=== PATIENT | male | born 1995 | race Caucasian/White ===

== ENCOUNTER 2016-05-11 10:11 | Emergency (ER) | payer SELFPAY ==
[2016-05-11 10:30] VITALS: TEMP 98.1; O2SAT 99
--- NOTE | 2016-05-11 10:33 | ED.PDOC ---
History of Present Illness - General Chief Complaint: ENT Problem Stated Complaint: sorethroat, cough Time Seen by Provider: 05/11/16 10:20 Source: patient, RN notes reviewed, Vital Signs reviewed Exam Limitations: no limitations - History of Present Illness Initial Comments: Patient reports he started feeling bad about 5 days ago. Took most of last week off work due to it. Started to feel better on Thursday and then worsened again on Thursday. No fever but + chills, nasal congestion, sore throat and cough. He did not get a flu shot this year. Timing/Duration: other - 5 days Severity: moderate Improving Factors: nothing Worsening Factors: nothing Associated Symptoms: cough, fever/chills, headaches - unchanged from baseline, malaise Allergies/Adverse Reactions: Allergies NO KNOWN ALLERGY Allergy (Verified 05/11/16 10:25) Home Medications: Ambulatory Orders Azithromycin [Zithromax Z-Juan Jose] 1 ea PO DAILY #1 pack 05/11/16 Review of Systems - Review of Systems Constitutional: States: chills, malaise. Denies: fever, weakness EENTM: States: nose congestion, throat pain. Denies: ear pain, mouth pain Respiratory: States: cough. Denies: orthopnea, short of breath, stridor, wheezing Cardiology: States: no symptoms reported Gastrointestinal/Abdominal: States: no symptoms reported Genitourinary: States: no symptoms reported Musculoskeletal: States: no symptoms reported Skin: States: no symptoms reported Neurological: States: headache Endocrine: States: no symptoms reported Hematologic/Lymphatic: States: no symptoms reported Past Medical History (General) - Patient Medical History Hx Seizures: No Hx Stroke: No Hx Dementia: No Hx Asthma: No Hx of COPD: No Hx Cardiac Disorders: No Hx Congestive Heart Failure: No Hx Pacemaker: No Hx Hypertension: No Hx Thyroid Disease: Yes Hx Diabetes: No Hx Gastroesophageal Reflux: No Hx Renal Disease: No Hx Cancer: No Hx of HIV: No Hx Hepatitis C: No Hx MRSA: No Surgical History: no surgical history - Vaccination History Hx Tetanus, Diphtheria Vaccination: Yes Hx Influenza Vaccination: No Hx Pneumococcal Vaccination: No - Social History Hx Tobacco Use: No Hx Chewing Tobacco Use: No Hx Alcohol Use: No Hx Substance Use: No Hx Substance Use Treatment: No Hx Depression: Yes Hx Physical Abuse: No Hx Emotional Abuse: No Hx Suspected Abuse: No - Activities of Daily Living Hospice Agency (if applicable):: None - Female History Patient is a Female of Child Bearing Age (10 -59 yrs old): No Patient : No Family Medical History - Family History Mother Family History: Unknown Living Status: Physical Exam - Physical Exam General Appearance: Alert, Comfortable, No apparent distress, Well Developed, Well Groomed, Well Hydrated, Well Nourished Eye Exam: bilateral normal Ears, Nose, Throat: hearing grossly normal, normal ENT inspection, normal pharynx Neck: non-tender, full range of motion, supple, normal inspection Respiratory: chest non-tender, lungs clear, normal breath sounds, no respiratory distress, no accessory muscle use Cardiovascular/Chest: regular rate, rhythm, no edema, no gallop, no JVD, no murmur Extremity: normal range of motion, non-tender, normal inspection Neurologic: no motor/sensory deficits, alert, normal mood/affect, oriented x 3 Skin Exam: normal color, warm/dry Lymphatic: no adenopathy Progress - Results/Orders Results/Orders: Laboratory Tests 05/11/16 10:31 Group A Strep DNA Negative Influenza A & B are Negative Departure - Departure Clinical Impression: Upper respiratory infection, acute Time of Disposition: 11:04 Disposition: Discharge to Home or Self Care Condition: Good Departure Forms: ED Discharge - Pt. Copy, Patient Portal Self Enrollment Instructions: DI for Viral Upper Respiratory Infection -- Adult Diet: resume usual diet Activity: increase activity as tolerated Prescriptions: Azithromycin [Zithromax Z-Juan Jose] 1 ea PO DAILY #1 pack Home Medications: Ambulatory Orders Azithromycin [Zithromax Z-Juan Jose] 1 ea PO DAILY #1 pack 05/11/16 Additional Instructions: OTC cold/sinus medications
[2016-05-11 11:11] VITALS: BP 142/91
== END 2016-05-11 11:10 | disposition home or self-care (01) ==
LOC: ER 10:11
DX: J06.9 Acute upper respiratory infection, unspecified (principal); E07.9 Disorder of thyroid, unspecified

== ENCOUNTER 2017-05-28 17:41 | Emergency (ER) | payer SELFPAY ==
[2017-05-28] MEDS ORDERED: ACETAMINOPHEN 500 MG TAB PO ONE (19:07)
[2017-05-28] MEDS ORDERED: PROMETHAZINE HCL INJ 12.5 MG in SODIUM CHLORIDE 0.9% 50ML 50 ML IVPB ONE (19:07)
[2017-05-28] MEDS ORDERED: SODIUM CHLORIDE 0.9% 1000ML 1,000 ML IVS ONE (19:07)
[2017-05-28] MEDS ORDERED: SODIUM CHLORIDE 0.9% 50ML 50 ML ONE (19:10)
[2017-05-28] MEDS ORDERED: PROMETHAZINE HCL INJ 25 MG/ML VIAL ONE (19:10)
--- NOTE | 2017-05-28 20:28 | ED.PDOC ---
History of Present Illness - General Chief Complaint: GI Problem Stated Complaint: Nausea, vomiting, diarrhea Time Seen by Provider: 05/28/17 20:11 Source: patient Exam Limitations: no limitations Additional Information: ONSET TODAY. DIARRHEA WATERY NO BLOOD, IS UNSURE ABOUT COFFEE GROUND EMESIS. ONSET OF FEVER [employer]. - History of Present Illness Initial Comments: MOD IN INTENSITY Severity: moderate Improving Factors: nothing Worsening Factors: nothing Allergies/Adverse Reactions: Allergies NO KNOWN ALLERGY Allergy (Verified 05/11/16 10:25) Home Medications: Ambulatory Orders Azithromycin [Zithromax Z-Juan Jose] 1 ea PO DAILY #1 pack 05/11/16 Ondansetron [Zofran Odt] 4 mg PO TID PRN #6 tab 05/28/17 Review of Systems - Review of Systems Constitutional: States: diaphoresis, fever. Denies: chills EENTM: States: no symptoms reported Respiratory: States: cough. Denies: short of breath Cardiology: Denies: chest pain, palpitations, syncope Gastrointestinal/Abdominal: States: abdominal pain, diarrhea, nausea, vomiting Genitourinary: States: no symptoms reported Musculoskeletal: States: no symptoms reported Skin: States: no symptoms reported Neurological: States: no symptoms reported Endocrine: States: no symptoms reported Past Medical History (General) - Patient Medical History Hx Seizures: No Hx Stroke: No Hx Dementia: No Hx Asthma: No Hx of COPD: No Hx Cardiac Disorders: No Hx Congestive Heart Failure: No Hx Pacemaker: No Hx Hypertension: No Hx Thyroid Disease: Yes Hx Diabetes: No Hx Gastroesophageal Reflux: No Hx Renal Disease: No Hx Cancer: No Hx of HIV: No Hx Hepatitis C: No Hx MRSA: No Surgical History: no surgical history - Vaccination History Hx Tetanus, Diphtheria Vaccination: Yes Hx Influenza Vaccination: No Hx Pneumococcal Vaccination: No Immunizations Up to Date: Yes - Social History Hx Tobacco Use: No Hx Chewing Tobacco Use: No Hx Alcohol Use: No Hx Substance Use: No Hx Substance Use Treatment: No Hx Depression: Yes Hx Physical Abuse: No Hx Emotional Abuse: No Hx Suspected Abuse: No - Female History Patient : No Family Medical History - Family History Mother Family History: Unknown Living Status: Physical Exam - Physical Exam General Appearance: Alert, No apparent distress Eye Exam: bilateral normal Ears, Nose, Throat: hearing grossly normal, normal ENT inspection Neck: non-tender, full range of motion, supple Respiratory: lungs clear, normal breath sounds Cardiovascular/Chest: regular rate, rhythm, no edema, no murmur Gastrointestinal/Abdominal: normal bowel sounds, soft, no organomegaly, other - MILD TTP DIFFUSELY Back Exam: normal inspection, no CVA tenderness, no vertebral tenderness Extremity: normal range of motion, non-tender, no pedal edema Neurologic: alert, normal mood/affect Skin Exam: diaphoresis, other - HOT Lymphatic: no adenopathy Progress - Progress Progress: 05/28/17 21:36 NO FURTHER VOMITING, UNABLE TO PROVIDE STOOL SAMPLE. Departure - Departure Clinical Impression: Gastroenteritis and colitis, viral, Dehydration Time of Disposition: 21:43 Disposition: Discharge to Home or Self Care Condition: Good Departure Forms: ED Discharge - Pt. Copy, Patient Portal Self Enrollment Instructions: DI for Viral Gastroenteritis -- Adult Prescriptions: Ondansetron [Zofran Odt] 4 mg PO TID PRN #6 tab PRN Reason: Nausea/Vomiting Home Medications: Ambulatory Orders Azithromycin [Zithromax Z-Juan Jose] 1 ea PO DAILY #1 pack 05/11/16 Ondansetron [Zofran Odt] 4 mg PO TID PRN #6 tab 05/28/17
[2017-05-28 22:01] VITALS: BP 143/79; O2SAT 99
[2017-05-28 22:03] VITALS: TEMP 99.9
== END 2017-05-28 22:02 | disposition home or self-care (01) ==
LOC: ER 17:41
DX: A08.4 Viral intestinal infection, unspecified (principal); E86.0 Dehydration; E07.9 Disorder of thyroid, unspecified

== ENCOUNTER 2017-06-04 06:25 | Emergency (ER) | payer SELFPAY ==
--- NOTE | 2017-06-04 06:32 | ED.PDOC ---
History of Present Illness - General Information Source: patient, Vital Signs reviewed Additional Information: 22 YEAR OLD PRESENTS WITH ACUTE ONSET OF PAIN IN THE RIGHT LOWER QUADRANT EARLY THIS MORNING HE HAS ASSOCIATED NAUSEA NO VOMITING NO DIARRHEA HAS SOME RADIATION TOWARD THE CENTRAL ABDOMEN HAS URGE TO VOID NO FLANK PAIN HIS SISTER HAS HISTORY OF RENAL CALCULUS - History of Present Illness Abdominal Pain Onset Location: RLQ, flank Pain Radiation: RLQ Quality: moderate, stabbing Timing/Duration: 1/2 hour Improving Factors: nothing Worsening Factors: nothing Associated Symptoms: nausea/vomiting <Jose Cordova - Last Filed: 06/04/17 06:30> <William Avalos - Last Filed: 06/04/17 08:35> - General Time Seen by Provider: 06/04/17 06:30 Review of Systems - Review of Systems Constitutional: States: no symptoms reported EENTM: States: no symptoms reported Respiratory: States: no symptoms reported Cardiology: States: no symptoms reported Gastrointestinal/Abdominal: States: see HPI Genitourinary: States: no symptoms reported Musculoskeletal: States: no symptoms reported Skin: States: no symptoms reported Neurological: States: no symptoms reported Endocrine: States: no symptoms reported Hematologic/Lymphatic: States: no symptoms reported <Jose Cordova Filed: 06/04/17 06:30> Past Medical History (General) - Patient Medical History Hx Seizures: No Hx Stroke: No Hx Dementia: No Hx Asthma: No Hx of COPD: No Hx Cardiac Disorders: No Hx Congestive Heart Failure: No Hx Pacemaker: No Hx Hypertension: No Hx Thyroid Disease: Yes Hx Diabetes: No Hx Gastroesophageal Reflux: No Hx Renal Disease: No Hx Cancer: No Hx of HIV: No Hx Hepatitis C: No Hx MRSA: No - Vaccination History Hx Tetanus, Diphtheria Vaccination: Yes Hx Influenza Vaccination: No Hx Pneumococcal Vaccination: No - Social History Hx Tobacco Use: No Hx Chewing Tobacco Use: No Hx Alcohol Use: No Hx Substance Use: No Hx Substance Use Treatment: No Hx Depression: Yes Hx Physical Abuse: No Hx Emotional Abuse: No Hx Suspected Abuse: No - Female History Patient : No <Jose Cordova Filed: 06/04/17 06:30> Family Medical History - Family History Mother Family History: Unknown Living Status: <Jose Cordova Filed: 06/04/17 06:30> Physical Exam - Physical Exam General Appearance: Obvious distress Eyes, Ears, Nose, Throat Exam: PERRL/EOMI, normal ENT inspection, TMs normal, pharynx normal Neck: non-tender, full range of motion, supple Respiratory: chest non-tender, lungs clear, normal breath sounds Cardiovascular/Chest: normal peripheral pulses, regular rate, rhythm, no edema, no gallop, no JVD, no murmur Gastrointestinal/Abdominal: normal bowel sounds, tenderness - RLQ TENDER WITH GAURDING <Jose Cordova - Last Filed: 06/04/17 06:30> Progress - Results/Orders Results/Orders: 22 YEAR OLD HEALTHY MALE WITH ACUTE RLQ PAIN WILL GET CBC CMP UA CT ABDOMEN WITH IV CONTRAST POSSIBLE ACUTE APPENDICITIS <Jose Cordova - Last Filed: 06/04/17 06:30> - Progress Progress: 06/04/17 08:31 the patient is a 22-year-old male presenting to the emergency room with right-sided abdominal pain. Blood work is equivocal. Blood culture has been performed. The patient is being dosed with a dose of Rocephin, metronidazole and ciprofloxacin here today. He is going to be placed on ciprofloxacin and metronidazole for the next [address] scan indicates either early appendicitis or early mesenteric adenitis. 2 Aleve twice daily with food can be used to help with discomfort. If the patient is worsening after 24 or 48 hours then reevaluation may be warranted. At this time no surgical evaluation appears warranted. I would like him to follow up with his primary care doctor tomorrow evening before the weekend for reevaluation. ER warnings were given for any worsening. He does need to take antibiotics with some food prevent stomach upset and he needs to avoid alcohol intake. - Results/Orders Results/Orders: 06/04/17 06:38 Hold Metformin x 48Hrs [id number] 06/04/17 08:07 cefTRIAXone SODIUM [Rocephin] 1 gm Sodium Chl 0.9% 50Ml Min-Bag+ [NS 50ml MINI -BAG+] 50 ml IVPB ONCE metroNIDAZOLE IV PREMIX 500MG [Flagyl IV Premix 500 MG/100 ML] 500 mg Premix Bag 1 bag IVPB ONCE 06/04/17 08:11 BLOOD CULTURE Stat Laboratory Results - last 24 hr 06/04/17 06/04/17 06/04/17 06:54 06:54 07:25 WBC 10.0 RBC 4.91 Hgb 14.9 Hct 42.5 MCV 86.4 MCH 30.4 MCHC 35.1 RDW 13.1 Plt Count 296 MPV 7.8 Absolute Neuts (auto) 4.80 Absolute Lymphs (auto) 4.10 H Absolute Monos (auto) 0.90 H Absolute Eos (auto) 0.10 Absolute Basos (auto) 0.10 Neutrophils % 48.0 Lymphocytes % 41.3 Monocytes % 8.7 Eosinophils % 1.0 Basophils % 1.0 Sodium 138 Potassium 3.3 L Chloride 103 Carbon Dioxide 25 Anion Gap 13.3 BUN 8 Creatinine 0.81 BUN/Creatinine Ratio 9.9 L Random Glucose 107 H Serum Osmolality 274.5 L Calcium 8.9 Total Bilirubin 0.6 AST 36 ALT 61 H Alkaline Phosphatase 73 Serum Total Protein 8.5 H Albumin 4.0 Globulin 4.5 H Albumin/Globulin Ratio 0.9 L Urine Color Yellow Urine Appearance Clear Urine pH 6.0 Ur Specific [place] 1.025 Urine Protein Negative Urine Glucose (UA) Negative Urine Ketones Negative Urine Blood Negative Urine Nitrite Negative Urine Bilirubin Negative Urine Urobilinogen 0.2 Ur Leukocyte Esterase Negative Urine RBC 0 Urine WBC 3-5 H Ur Epithelial Cells 3-5 Urine Bacteria Rare Urine Mucus Moderate scan of the abdomen and pelvis show possible mesenteric adenitis versus possible early appendicitis. No obstruction. No free air. No abscess. No evidence of any kidney stone. <William Avalos - Last Filed: 06/04/17 08:35> Departure <Jose Cordova - Last Filed: 06/04/17 06:30> - Departure Diet: regular diet Activity: increase activity as tolerated <William Avalos - Last Filed: 06/04/17 08:35> - Departure Clinical Impression: Abdominal pain Qualifiers: Abdominal location: right lower quadrant Qualified Code(s): R10.31 - Right lower quadrant pain Disposition: Discharge to Home or Self Care Condition: Fair Instructions: DI for Abdominal Pain-Adult Prescriptions: Ciprofloxacin [Cipro] 500 mg PO BID #20 tab Metronidazole 500 mg PO TID #30 tab Home Medications: Ambulatory Orders Azithromycin [Zithromax Z-Juan Jose] 1 ea PO DAILY #1 pack 05/11/16 Ondansetron [Zofran Odt] 4 mg PO TID PRN #6 tab 05/28/17 Ciprofloxacin [Cipro] 500 mg PO BID #20 tab 06/04/17 Metronidazole 500 mg PO TID #30 tab 06/04/17 Additional Instructions: the patient is a 22-year-old male presenting to the emergency room with right-sided abdominal pain. Blood work is equivocal. Blood culture has been performed. The patient is being dosed with a dose of Rocephin, metronidazole and ciprofloxacin here today. He is going to be placed on ciprofloxacin and metronidazole for the next [address] scan indicates either early appendicitis or early mesenteric adenitis. 2 Aleve twice daily with food can be used to help with discomfort. If the patient is worsening after 24 or 48 hours then reevaluation may be warranted. At this time no surgical evaluation appears warranted. I would like him to follow up with his primary care doctor tomorrow evening before the weekend for reevaluation. ER warnings were given for any worsening. He does need to take antibiotics with some food prevent stomach upset and he needs to avoid alcohol intake. for the next 48 hours a full liquid diet is recommended.
[2017-06-04 06:49] VITALS: TEMP 97.6
[2017-06-04] MEDS: SODIUM CHLORIDE 0.9% 1000ML 1,000 ML IVS ONE (06:58)
[2017-06-04] MEDS: KETOROLAC TROMETHAMINE INJ 30 MG/ML VIAL IV ONE (06:59)
--- NOTE | 2017-06-04 08:01 | CT ---
EXAM DESCRIPTION: CT ABDOMEN AND PELVIS WITH CONTRAST CLINICAL HISTORY: R/O APPY COMPARISON: None Available. TECHNIQUE: Venous and delayed imaging with IV nonionic contrast was performed without oral contrast enhancement with MPR reformatted images. This exam was performed according to our departmental dose-optimization program, which includes automated exposure control, adjustment of the mA and/or kV according to patient size and/or use of iterative reconstruction technique. FINDINGS: The lung bases are clear of infiltrate. In the right lower quadrant on both venous and delayed imaging as well as MPR reformatted images curvilinear minimally hyperemic appendix between six and 7 mm in size is present. An associated appendicolith or cecal or pericolic inflammation is not apparent. The appendix is borderline enlarged and possibility of very early or very minimal uncomplicated acute appendicitis cannot be completely excluded. Secondary inflammatory changes around the cecum and appendix and small bowel are not apparent. Surgical consultation and/or correlation with the laboratory values recommended. Numerous normal to upper normal mesenteric lymph nodes consistent with mesenteric adenitis with some nodes borderline enlarged at approximately 1.5 cm is apparent. The liver is upper normal in size with mild diffuse fatty infiltration of the liver with mild splenomegaly. Small and large bowel caliber is normal. The kidneys normally enhance without cyst or mass or obstruction in normal function on delayed imaging is apparent. The adrenal glands and pancreas are normal in appearance. Within the pelvis the bladder is incompletely distended with a small amount of contrast on delayed imaging noted. The prostate and seminal vesicles as well as the inguinal and iliac regions appear normal. Retroperitoneum including the aorta and vena cava is unremarkable. IMPRESSION: 1. Borderline enlarged minimally hyperemic appendix 6 to 7 mm in diameter, otherwise normal in appearance without secondary signs of appendicitis or pericecal or pericolic inflammatory changes. I am uncertain whether this represents the upper limits of normal appendix or earliest changes of appendicitis. 2. Mesenteric adenitis with numerous normal to upper normal mesenteric lymph nodes within the central abdomen extending into the right lower quadrant and to a lesser extent left lower quadrant regions. This also should be considered as a possible etiology for the patient's right lower quadrant pain. 3. Borderline hepatomegaly and mild diffuse fatty infiltration of the liver. 4. Bowel splenomegaly without focal mass and normal appearance and function of the kidneys. Electronically signed by: Aldair Mcelroy MD 06/04/2017 8:00 AM CDT
[2017-06-04] MEDS ORDERED: cefTRIAXone SODIUM 1 GM VIAL ONE (08:11)
[2017-06-04] MEDS ORDERED: SODIUM CHL 0.9% 50ML MIN-BAG+ 50 ML IVPB ONE (08:12)
[2017-06-04] MEDS: cefTRIAXone SODIUM 1 GM in SODIUM CHL 0.9% 50ML MIN-BAG+ 50 ML IVPB ONE (08:24)
[2017-06-04] MEDS: CIPROFLOXACIN 500 MG TAB PO ONE (08:26)
[2017-06-04] MEDS ORDERED: metroNIDAZOLE IV PREMIX 500MG 100 ML IVPB ONE (08:46)
[2017-06-04] MEDS: metroNIDAZOLE IV PREMIX 500MG 500 MG in PREMIX BAG 1 BAG IVPB ONE (08:48)
[2017-06-04 10:06] VITALS: BP 144/89; O2SAT 100
== END 2017-06-04 09:55 | disposition home or self-care (01) ==
LOC: ER 06:25
DX: R10.31 Right lower quadrant pain (principal); E07.9 Disorder of thyroid, unspecified
CPT/HCPCS: 36415; 74177; 80053; 81001; 85025; 87040; J0696; J1885; J3490; J7030; J7050

== ENCOUNTER 2017-08-05 15:21 | Emergency (ER) | payer SELFPAY ==
[2017-08-05 15:36] VITALS: TEMP 98.6
[2017-08-05] MEDS: SODIUM CHLORIDE 0.9% 1000ML 1,000 ML IVS ONE (15:57)
[2017-08-05] MEDS: ALUMINUM & MAGNESIUM HYDROXIDE 30 ML UD PO ONE (15:57)
[2017-08-05] MEDS: ONDANSETRON ODT 8 MG TAB SL ONE (15:57)
--- NOTE | 2017-08-05 16:57 | ED.PDOC ---
History of Present Illness - General Chief Complaint: GI Problem Stated Complaint: vomiting and diarrhea Time Seen by Provider: 08/05/17 15:32 Source: patient Exam Limitations: no limitations - History of Present Illness Initial Comments: the patient is a 22-year-old male presenting to the emergency room secondary to nausea and vomiting and diarrhea for the last 24 hours. No blood in either. No bile. No real abdominal pain. No fevers. He has had a mild sore throat recently. No runny nose. No chest pain or shortness of breath. He reports that he is not taking any thyroid medication for 3 years. He does not know of any food intolerances. Timing/Duration: 24 hours Severity: mild Improving Factors: nothing Worsening Factors: nothing Associated Symptoms: denies symptoms Allergies/Adverse Reactions: Allergies NO KNOWN ALLERGY Allergy (Verified 08/05/17 15:36) Home Medications: Ambulatory Orders Azithromycin [Zithromax Z-Juan Jose] 1 ea PO DAILY #1 pack 05/11/16 Ondansetron [Zofran Odt] 4 mg PO TID PRN #6 tab 05/28/17 Ciprofloxacin [Cipro] 500 mg PO BID #20 tab 06/04/17 Metronidazole 500 mg PO TID #30 tab 06/04/17 Famotidine 20 mg PO BID #60 tab 08/05/17 Sucralfate Tab [Carafate Tab] 1 gm PO QID #120 tab 08/05/17 Review of Systems - Review of Systems Constitutional: States: no symptoms reported EENTM: States: no symptoms reported Respiratory: States: no symptoms reported Cardiology: States: no symptoms reported Gastrointestinal/Abdominal: States: diarrhea, nausea, vomiting Genitourinary: States: no symptoms reported Musculoskeletal: States: no symptoms reported Skin: States: no symptoms reported Neurological: States: no symptoms reported Endocrine: States: no symptoms reported All other Systems: No Change from Baseline Past Medical History (General) - Patient Medical History Hx Seizures: No Hx Stroke: No Hx Dementia: No Hx Asthma: No Hx of COPD: No Hx Cardiac Disorders: No Hx Congestive Heart Failure: No Hx Pacemaker: No Hx Hypertension: No Hx Thyroid Disease: Yes Hx Diabetes: No Hx Gastroesophageal Reflux: Yes Hx Renal Disease: No Hx Cancer: No Hx of HIV: No Hx Hepatitis C: No Hx MRSA: No Surgical History: no surgical history - Vaccination History Hx Tetanus, Diphtheria Vaccination: Yes Hx Influenza Vaccination: No Hx Pneumococcal Vaccination: No - Social History Hx Tobacco Use: No Hx Chewing Tobacco Use: No Hx Alcohol Use: No Hx Substance Use: No Hx Substance Use Treatment: No Hx Depression: Yes Hx Physical Abuse: No Hx Emotional Abuse: No Hx Suspected Abuse: No - Female History Patient : No Family Medical History - Family History Mother Family History: Unknown Living Status: Physical Exam - Physical Exam General Appearance: Alert, Comfortable, No apparent distress Eye Exam: bilateral normal Ears, Nose, Throat: hearing grossly normal, normal ENT inspection, normal pharynx Neck: full range of motion, supple Respiratory: lungs clear, normal breath sounds, no respiratory distress, no accessory muscle use Cardiovascular/Chest: normal peripheral pulses, regular rate, rhythm, no edema Peripheral Pulses: radial,right: 2+, radial,left: 2+, dorsalis pedis,right: 2+, dorsalis pedis,left: 2+ Gastrointestinal/Abdominal: non tender, soft Rectal Exam: deferred Back Exam: normal inspection, no CVA tenderness, no vertebral tenderness Extremity: normal range of motion, non-tender, normal inspection, no pedal edema , no calf tenderness, normal capillary refill 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 This is most likely a viral gastroenteritis with background gastritis. The patient is to keep himself well hydrated. He needs to avoid antidiarrheals unless the diarrhea becomes severe. The patient is going to be placed on Pepcid and Carafate for the next month. He will also be written for Zofran for as needed use. He does need to try and do a strict lactose-free and gluten-free diet for 3 weeks. After that time he can do an oral challenge of a large lactose load and see if this causes stomach upset. If it does then lactose intolerance may be contributing to his long- term stomach issues. He can do the same challenge with gluten after that to see if this is causing some stomach upset as well. He can keep follow-up with his primary care doctor as previously scheduled. He was given a liter of IV fluids here. The patient appears stable and in no acute distress. Laboratory work is fairly reassuring at this time. No point abdominal tenderness. - Results/Orders Results/Orders: Laboratory Tests 08/05/17 08/05/17 16:00 16:00 WBC 12.8 H RBC 5.12 Hgb 15.4 Hct 44.6 MCV 87.1 MCH 30.0 MCHC 34.5 RDW 12.9 Plt Count 316 MPV 8.1 Absolute Neuts (auto) 8.80 H Absolute Lymphs (auto) 2.90 Absolute Monos (auto) 1.00 H Absolute Eos (auto) 0.10 Absolute Basos (auto) 0.10 Neutrophils % 68.5 Lymphocytes % 22.4 Monocytes % 8.1 Eosinophils % 0.6 L Basophils % 0.4 Sodium 139 Potassium 3.5 L Chloride 107 Carbon Dioxide 25 Anion Gap 10.5 L BUN 8 Creatinine 0.64 BUN/Creatinine Ratio 12.5 Random Glucose 100 Serum Osmolality 276.0 Calcium 9.7 Magnesium 1.9 Total Bilirubin 0.8 AST 52 H ALT 60 Alkaline Phosphatase 75 Serum Total Protein 9.0 H Albumin 4.6 Globulin 4.4 H Albumin/Globulin Ratio 1.0 L Amylase 32 Lipase 33 TSH 2.36 Departure - Departure Clinical Impression: Gastroenteritis Disposition: Discharge to Home or Self Care Condition: Fair Departure Forms: ED Discharge - Pt. Copy, Patient Portal Self Enrollment Instructions: DI for Gastritis, DI for Diarrhea and Traveler's Diarrhea -- Adult Diet: bland diet - see above Activity: increase activity as tolerated Prescriptions: Famotidine 20 mg PO BID #60 tab Sucralfate Tab [Carafate Tab] 1 gm PO QID #120 tab Home Medications: Ambulatory Orders Azithromycin [Zithromax Z-Juan Jose] 1 ea PO DAILY #1 pack 05/11/16 Ondansetron [Zofran Odt] 4 mg PO TID PRN #6 tab 05/28/17 Ciprofloxacin [Cipro] 500 mg PO BID #20 tab 06/04/17 Metronidazole 500 mg PO TID #30 tab 06/04/17 Famotidine 20 mg PO BID #60 tab 08/05/17 Sucralfate Tab [Carafate Tab] 1 gm PO QID #120 tab 08/05/17 Additional Instructions: the patient is a 22-year-old male presenting with nausea and vomiting and some diarrhea for the last 24 hours. This is most likely a viral gastroenteritis with background gastritis. The patient is to keep himself well hydrated. He needs to avoid antidiarrheals unless the diarrhea becomes severe. The patient is going to be placed on Pepcid and Carafate for the next month. He will also be written for Zofran for as needed use. He does need to try and do a strict lactose-free and gluten-free diet for 3 weeks. After that time he can do an oral challenge of a large lactose load and see if this causes stomach upset. If it does then lactose intolerance may be contributing to his long- term stomach issues. He can do the same challenge with gluten after that to see if this is causing some stomach upset as well. He can keep follow-up with his primary care doctor as previously scheduled. He was given a liter of IV fluids here. The patient appears stable and in no acute distress. Laboratory work is fairly reassuring at this time. No point abdominal tenderness.
[2017-08-05 17:13] VITALS: BP 144/83; O2SAT 98
== END 2017-08-05 17:13 | disposition home or self-care (01) ==
LOC: ER 15:21
DX: K52.9 Noninfective gastroenteritis and colitis, unspecified (principal); E07.9 Disorder of thyroid, unspecified
CPT/HCPCS: 36415; 80053; 82150; 83690; 83735; 84443; 85025; J7030

== ENCOUNTER 2017-11-21 19:06 | Inpatient (IN) | payer SELFPAY ==
[2017-11-21] MEDS ORDERED: SODIUM CHLORIDE 0.9% 1000ML 1,000 ML IVS ONE (19:28)
[2017-11-21] MEDS ORDERED: ONDANSETRON ODT 8 MG TAB SL ONE (19:28)
--- NOTE | 2017-11-21 19:31 | ED.PDOC ---
History of Present Illness - General Chief Complaint: GI Problem Stated Complaint: N/V/D, lower abd pain Time Seen by Provider: 11/21/17 19:27 Information Source: patient Exam Limitations: no limitations - History of Present Illness Initial Comments: patient comes in today with 24 hour history of nausea, vomiting, diarrhea, and abdominal cramping. He has thrown up more than 10 times and had much more than 10 bowel movements. His abdomen is cramping and he's had subjective fever and chills. He's had no recent sick contacts, travel, or questionable by mouth intake. He is otherwise healthy although he knows that he does have borderline diabetes. Patient states he's had problems with his stomach in the past when he drinks too much soda and so he wondered originally if that was what was causing it but it did not improve. He is still making urine every time he has bowel movements. He states it is limited and decreased significantly in the last several hours. Abdominal Pain Onset Location: generalized abdomen Pain Radiation: no radiation Quality: mild, cramping Timing/Duration: 7-24 hours Improving Factors: nothing Worsening Factors: eating Associated Symptoms: diarrhea, fever/chills, nausea/vomiting Review of Systems - Review of Systems Constitutional: States: chills, fever, weakness EENTM: States: no symptoms reported. Denies: eye pain, ear pain, nose pain, nose congestion Respiratory: States: no symptoms reported. Denies: cough, short of breath, wheezing Cardiology: States: no symptoms reported. Denies: chest pain, edema, palpitations Gastrointestinal/Abdominal: States: see HPI Genitourinary: States: no symptoms reported Musculoskeletal: States: no symptoms reported Past Medical History (General) - Patient Medical History Hx Seizures: No Hx Stroke: No Hx Dementia: No Hx Asthma: No Hx of COPD: No Hx Cardiac Disorders: No Hx Congestive Heart Failure: No Hx Pacemaker: No Hx Hypertension: No Hx Thyroid Disease: Yes Hx Diabetes: No Hx Gastroesophageal Reflux: Yes Hx Renal Disease: No Hx Cancer: No Hx of HIV: No Hx Hepatitis C: No Hx MRSA: No Surgical History: no surgical history - Vaccination History Hx Tetanus, Diphtheria Vaccination: Yes Hx Influenza Vaccination: No Hx Pneumococcal Vaccination: No - Social History Hx Tobacco Use: No Hx Chewing Tobacco Use: No Hx Alcohol Use: No Hx Substance Use: No Hx Substance Use Treatment: No Hx Depression: Yes Hx Physical Abuse: No Hx Emotional Abuse: No Hx Suspected Abuse: No - Female History Patient : No Family Medical History - Family History Mother Family History: Unknown Living Status: Physical Exam - Physical Exam General Appearance: Alert, No apparent distress Eyes, Ears, Nose, Throat Exam: PERRL/EOMI, normal ENT inspection, TMs normal, pharynx normal, other - tacky mucous membranes Neck: non-tender, full range of motion, supple, normal inspection Respiratory: chest non-tender, lungs clear, normal breath sounds, no respiratory distress Cardiovascular/Chest: normal peripheral pulses, regular rate, rhythm, no edema, no gallop, no murmur, tachycardia Peripheral Pulses: No deficit Gastrointestinal/Abdominal: normal bowel sounds, non tender, soft, no organomegaly, no pulsatile mass Back Exam: normal inspection Neurologic: alert, oriented x 3 Progress - Progress Progress: patient reexamined and he is doing a little bit better. Patient still remains very thirsty but no upper abdominal pain at this time. No fever or chills since admission. He has not had any emesis but has had multiple bouts of diarrhea. We discussed admission with on-call physician based on his white blood cell count and bandemia. He agrees to place in the hospital for further evaluation. 11/21/17 20:29 - Results/Orders Results/Orders: 11/21/17 19:28 Sodium Chloride 0.9% 1000ML [Ns 1000 ml] 1,000 ml IVS ONCE 11/21/17 19:45 URINE CULTURE W/COLONY COUNT Stat 11/21/17 20:03 BLOOD CULTURE Stat Laboratory Results WBC 20.2 K/mm3 (4.8-10.8) H* 11/21/17 19:28 RBC 5.24 M/mm3 (4.70-6.10) 11/21/17 19:28 Hgb 15.8 gm/dL (14.0-18.0) 11/21/17 19:28 Hct 45.7 % (42.0-52.0) 11/21/17 19:28 MCV 87.1 fl (80.0-94.0) 11/21/17 19:28 MCH 30.1 pg (27.0-31.0) 11/21/17 19:28 MCHC 34.6 g/dL (33.0-37.0) 11/21/17 19:28 RDW 13.2 % (11.5-14.5) 11/21/17 19:28 Plt Count 285 K/mm3 (130-400) 11/21/17 19:28 MPV 7.7 fl (7.40-10.4) 11/21/17 19:28 Absolute Neuts (auto) 16.10 K/uL (1.8-6.8) H 11/21/17 19:28 Absolute Lymphs (auto) 2.00 K/uL (1.0-3.4) 11/21/17 19:28 Absolute Monos (auto) 2.00 K/uL (0.2-0.8) H 11/21/17 19:28 Absolute Eos (auto) 0.00 K/uL (0.0-0.4) 11/21/17 19:28 Absolute Basos (auto) 0.00 K/uL (0.0-0.1) 11/21/17 19:28 Neutrophils % 79.8 % (42.0-78.0) H 11/21/17 19:28 Neutrophils % (Manual) 78.0 % (42.0-78.0) 11/21/17 19:28 Lymphocytes % 10.1 % (20.0-50.0) L 11/21/17 19:28 Lymphocytes % (Manual) 11.0 % 11/21/17 19:28 Monocytes % 9.9 % (2.0-9.0) H 11/21/17 19:28 Monocytes % (Manual) 4.0 % 11/21/17 19:28 Eosinophils % 0.1 % (1.0-5.0) L 11/21/17 19:28 Basophils % 0.1 % (0.0-2.0) 11/21/17 19:28 Band Neutrophils 7.0 % (0-2) H 11/21/17 19:28 Platelet Estimate Normal (NORMAL) 11/21/17 19:28 Normal RBC Morphology Normal rbc morph 11/21/17 19:28 Sodium 135 mmol/L (135-145) 11/21/17 19:28 Potassium 3.3 mmol/L (3.6-5.0) L 11/21/17 19:28 Chloride 103 mmol/L (101-111) 11/21/17 19:28 Carbon Dioxide 23 mmol/L (21-31) 11/21/17 19:28 Anion Gap 12.3 (12-18) 11/21/17 19:28 BUN 10 mg/dL (7-18) 11/21/17 19:28 Creatinine 0.74 mg/dL (0.6-1.3) 11/21/17 19:28 BUN/Creatinine Ratio 13.5 (10-20) 11/21/17 19:28 Random Glucose 109 mg/dL (70-105) H 11/21/17 19:28 Serum Osmolality 269.7 mOsm/L (275-295) L 11/21/17 19:28 Lactic Acid 0.8 mmol/L (0.5-2.2) 11/21/17 19:42 Calcium 9.0 mg/dL (8.4-10.2) 11/21/17 19:28 Total Bilirubin 0.9 mg/dL (0.2-1.0) 11/21/17 19:28 AST 36 IU/L (10-42) 11/21/17 19:28 ALT 44 IU/L (10-60) 11/21/17 19:28 Alkaline Phosphatase 76 IU/L (42-121) 11/21/17 19:28 Serum Total Protein 8.6 gm/dL (6.4-8.2) H 11/21/17 19:28 Albumin 4.1 g/dl (3.2-5.5) 11/21/17 19:28 Globulin 4.5 gm/dL (2.3-3.5) H 11/21/17 19:28 Albumin/Globulin Ratio 0.9 (1.1-1.9) L 11/21/17 19:28 Amylase 29 U/L (28-100) 11/21/17 19:28 Lipase 25 U/L (22-51) 11/21/17 19:28 Urine Color Yellow (Yellow) 11/21/17 19:45 Urine Appearance Clear (Clear) 11/21/17 19:45 Urine pH 5.5 (4.5-7.8) 11/21/17 19:45 Ur Specific [place] >= 1.030 (1.005-1.030) 11/21/17 19:45 Urine Protein 30 mg/dL 11/21/17 19:45 Urine Glucose (UA) Negative mg/dL (Negative) 11/21/17 19:45 Urine Ketones Negative mg/dL (NEGATIVE) 11/21/17 19:45 Urine Blood Negative (Negative) 11/21/17 19:45 Urine Nitrite Negative 11/21/17 19:45 Urine Bilirubin Small (NEGATIVE) H 11/21/17 19:45 Urine Urobilinogen 0.2 mg/dL (0.2-1.0) 11/21/17 19:45 Ur Leukocyte Esterase Negative (Negative) 11/21/17 19:45 Urine RBC 1-3 /hpf 11/21/17 19:45 Urine WBC 10-20 /hpf H 11/21/17 19:45 Ur Epithelial Cells 0 /hpf 11/21/17 19:45 Urine Bacteria 1+ 11/21/17 19:45 Urine Mucus Large 11/21/17 19:45 Departure - Departure Clinical Impression: Gastroenteritis, Dehydration Disposition: Admit Patient Condition: Fair Departure Forms: ED Discharge - Pt. Copy, Patient Portal Self Enrollment Home Medications: Ambulatory Orders Azithromycin [Zithromax Z-Juan Jose] 1 ea PO DAILY #1 pack 05/11/16 Ondansetron [Zofran Odt] 4 mg PO TID PRN #6 tab 05/28/17 Ciprofloxacin [Cipro] 500 mg PO BID #20 tab 06/04/17 Metronidazole 500 mg PO TID #30 tab 06/04/17 Famotidine 20 mg PO BID #60 tab 08/05/17 Sucralfate Tab [Carafate Tab] 1 gm PO QID #120 tab 08/05/17
--- NOTE | 2017-11-21 20:51 | HP ---
SUPERVISING PHYSICIAN: Wilfrid Hannon MD CHIEF COMPLAINT: Nausea, vomiting, diarrhea, abdomen pain. HISTORY OF PRESENT ILLNESS: Urban is a 22 year-old male patient who presented to the Emergency Room today with a complaint of over 24-hour history of nausea, vomiting, diarrhea and abdomen cramps. He noted that he had thrown up more than 10 times as well as had over 10 bowel movements. He reported that his abdomen was cramping and hurting and he had subjective fever as well as chills. He denied any recent sick contacts, any travel or any other questionable oral intake. He notes that he has had a significant decrease in his urine output as well as he is having some difficulty holding much oral intake in. His laboratory studies initially showed he had a significant leukocytosis of 20,200 with 7% bands. Chemistries showed a mild low potassium at 3.3 with intact renal function with creatinine 0.74. Liver functions all showed to be within normal limits as well as his pancreatic enzymes. Urinalysis did show a small amount of bilirubin with a microscopic revealing 10 to 20 WBC with 1+ bacteria, large amount of mucus but no epithelials. I also ordered a stool workup at time of admission and he was positive on occult blood as well as leuko ferritin. His vital signs showed a low grade temperature of 99.9, mildly tachycardiac with a heart rate of 107, blood pressure 124/77, saturation 97%on room air. His lactic acid was showing to be within normal limits. Today, an abdominal pelvic CT with contrast per radiology interpretation suggestive of pancolitis, concerns for infectious versus inflammatory. The patient is now going to be admitted to the medical/surgical floor for ongoing treatment of colitis, possibly infectious and IV fluid for dehydration. He was admitted in stable condition. PAST MEDICAL HISTORY: No chronic medical conditions noted. PAST SURGICAL HISTORY: No surgeries listed. CURRENT MEDICATIONS: No chronic medications taken or [id number] medications listed. ALLERGIES: He notes he thinks he may be allergic to ciprofloxacin or levofloxacin which he has had in the past month or so and he developed blisters but he is unsure of the actual name of the drug. FAMILY HISTORY: Positive for diabetes. SOCIAL HISTORY: Patient is currently unemployed, living with his parents. He does not smoke. He does not drink alcohol or use illicit drugs. REVIEW OF SYSTEMS: CONSTITUTIONAL: Positive for fever, chills and generalized weakness. HEENT: Denies ear pain, sore throat, nasal congestion, ear aches. RESPIRATORY: Denies any coughing, shortness of breath, wheezing. CARDIOVASCULAR: Denies any chest pains, edema, palpitations. GASTROINTESTINAL: As noted in the history of present illness, he is having some abdominal pain with an extensive amount of diarrhea and associated nausea and vomiting. GENITOURINARY: Denies any dysuria, hematuria, polyuria or any other urinary symptoms. NEUROLOGICAL: Denies seizures, ataxia, headaches or syncopal episodes. PHYSICAL EXAMINATION: VITAL SIGNS: Temperature 99.9, pulse 107, blood pressure 124/77, respirations 18, saturation 97% on room air. Admission weight is 126.2 kg. GENERAL: The patient appears to be in no acute distress, very pleasant, cooperative and alert. HEENT: Tympanic membranes are clear bilaterally. Oropharynx was pink with mucosal membranes being dry but no lesions noted. NECK: Supple, non-tender with full range of motion. No jugular venous distention was appreciated. CHEST: Lung sounds are clear bilaterally without any rhonchi, rales, or wheezes. CARDIOVASCULAR: Heart regular rate and rhythm without appreciable murmurs, rubs, or gallops. ABDOMEN: Soft with some tenderness on palpation noted to the right lower quadrant and across the umbilicus into the left with mild rebound tenderness with hyperactive bowel sounds. NEUROLOGIC: He is alert and oriented x3. LABORATORY: White count showed leukocytosis of 20,200 with increased bands of 7 %, hemoglobin 15.8, hematocrit 45.7. Chemistries showed a mild low potassium at 3.3, BUN 10, creatinine 0.74, lactic acid 0.8, magnesium 1.8. Liver functions within normal limits as well as amylase and lipase. Urinalysis significant for small amount of bilirubin with microscopic revealing 10 to 20 WBCs, 1 to 3 RBCs, no epithelials and 1+ bacteria with a large amount of mucus. Stool occult blood was positive. Leuko ferritin was positive. O&Ps are pending. MICROBIOLOGY: Stool culture pending. C. difficile pending. Blood cultures pending. Urine culture pending. RADIOLOGY: Abdominal pelvic CT with contrast per radiology interpretation findings suggestive of pancolitis which may be infectious or inflammatory. ASSESSMENT: 1. Acute abdominal pain with persistent nausea, vomiting, diarrhea with CT findings suggestive of pancolitis with differential including infectious versus inflammatory with the patient having both positive occult blood and leuko ferritin. 2. Moderate dehydration secondary to #1. 3. Electrolyte imbalance with a hypokalemia secondary to #1. 4. Leukocytosis with increased band secondary to #1 with concerns for bacterial etiology with stool studies pending. 5. Acute urinary tract infection with cultures pending. PLAN: The patient is admitted to the medical/surgical floor for ongoing treatment of his diarrhea, nausea and vomiting. Given that his CT findings are consistent with colitis and concerns for bacterial infection, I have started him on azithromycin due to the fact that he is unsure if he can tolerate ciprofloxacin and levofloxacin. I have also started him on Rocephin for underlying urinary tract infection and will await culture results both of urine and stool workup to further target antibiotic treatment. I will put him on IV fluids for replacement with half normal saline, 20 potassium initially at 100 an hour. He was given one liter of fluids in the Emergency Room. Will have him on a clear liquid diet as tolerated. He will have Zofran for any nausea. Will anticipate his length of stay to be at least 2 to 3 days. Until the patient is clinically improved and can transition to outpatient management, will continue to monitor and treat appropriate. #[id number] [facility]
--- NOTE | 2017-11-21 22:44 | CT ---
CT ABDOMEN PELVIS WITH IV CONTRAST Exam date: November 21, 2017 Comparison: CT abdomen pelvis June 04, 2017 Indication: Right lower quadrant pain Technique: Multiple helical axial images were obtained through the abdomen and pelvis using intravenous contrast. Coronal and sagittal reformatted images were obtained. All CT scans at this facility use dose modulation, iterative reconstruction, and/or weight-based dosing when appropriate to reduce radiation dose to as low as reasonably achievable. Findings: Lung bases: [Appear unremarkable]. Liver: [Homogenous attenuation is noted.] Gallbladder/biliary: [Appears unremarkable] Pancreas: [Unremarkable. No evidence of ductal enlargement.] Spleen: Appears unremarkable. No splenomegaly. Adrenals: Unremarkable. Kidneys and ureters: [No evidence of hydronephrosis. Normal enhancement.] Bladder: Unremarkable. Pelvic organs: Unremarkable. Bowel: [Colonic appears mildly diffusely thickened suggestive of colitis with prominent pericolonic vascularity. No evidence of bowel obstruction.] Appendix appears unremarkable. Vasculature: Unremarkable. Peritoneum: No free air. No significant free fluid. Lymph nodes: Unremarkable. Soft tissues: Unremarkable. Bones: Unremarkable. Impression: Findings suggestive of pancolitis which may be infectious or inflammatory. Electronically signed by: Cheo Doherty MD 11/21/2017 10:43 PM CDT
[2017-11-21] MEDS ORDERED: AZITHROMYCIN 250 MG TAB PO ONE (22:59)
[2017-11-21] MEDS ORDERED: ONDANSETRON INJ 4 MG/2 ML VIAL IV PRN (23:01)
[2017-11-21] MEDS ORDERED: SODIUM CHLORIDE 0.9% (FLUSH) 10 ML SYG IV PRN (23:02)
[2017-11-21] MEDS ORDERED: ACETAMINOPHEN 325 MG TAB PO PRN (23:02)
[2017-11-21] MEDS: KCL 20MEQ/D5 1/2NS 1,000 ML IVS PRN (23:18)
[2017-11-21] MEDS ORDERED: IV SET AND CAP CHANGE INJ INJ SCH (23:30)
[2017-11-22] MEDS ORDERED: cefTRIAXone SODIUM 1 GM VIAL ONE (00:15)
[2017-11-22] MEDS ORDERED: SODIUM CHL 0.9% 50ML MIN-BAG+ 50 ML IVPB ONE (00:15)
[2017-11-22] MEDS: cefTRIAXone SODIUM 1 GM in SODIUM CHL 0.9% 50ML MIN-BAG+ 50 ML IVPB SCH ×2 (00:17→23:34)
[2017-11-22] MEDS: TEMAZEPAM 15 MG CAP PO PRN ×2 (01:35→23:46)
[2017-11-22] MEDS: KCL 20MEQ/D5 1/2NS 1,000 ML IVS PRN (08:01)
[2017-11-22] MEDS ORDERED: KCL 40MEQ/NS 1,000 ML IVS PRN (08:32)
[2017-11-22] MEDS ORDERED: POTASSIUM CHLORIDE 20 MEQ TAB PO ONE (08:33)
--- NOTE | 2017-11-22 20:10 | PN ---
DATE: 11/22/17 SUPERVISING PHYSICIAN: Rahat Ortega M.D. SUBJECTIVE: Today, the patient notes that his abdominal pain is significantly decreased from admission. He has had less number of stools and has not had any significant amount of nausea, and actually tolerated clear liquids this morning. OBJECTIVE: He has been afebrile since admission with T max temperature of 98.4. Pulse 71, blood pressure 119/75, respirations 16, satting 100% on room air. I's and O's show a positive balance of 299 with 1599 in, 1300 out. Weight 126.6 kg. GENERAL: The patient appears to be in no acute distress, resting comfortably, very pleasant. CHEST: Lungs were clear to auscultation bilaterally. HEART: Regular rate and rhythm. ABDOMEN: Soft with no obvious tenderness this morning on palpation. No rebound tenderness. He notes that he is just a little bit sore. There are no peritoneal signs. Bowel sounds are active. EXTREMITIES: No clubbing, cyanosis or edema. NEUROLOGIC: He is alert and oriented times three. LABORATORY: White count is down to 13,600, hemoglobin 14.4, hematocrit 42.6, platelet count 260,000. Differential today does show a resolving left shift and no bands. Chemistries show a low potassium at 3.1, otherwise electrolytes were within normal limits. BUN 8, creatinine 0.82, glucose 98. Liver functions all showed to be within normal limits. He had 1 stool occult blood that was positive last night. O&Ps are still pending. Stool for cryptosporidium antigen and Giardia antigen are pending. MICROBIOLOGY: Clostridium Difficile toxin A and B was negative for both toxin and antigen. Stool culture is pending. Blood cultures remain negative. Urine culture is pending. RADIOLOGY: There are no radiographic studies this morning. ASSESSMENT: 1. Acute abdominal pain on admission with persistent nausea, vomiting and diarrhea with CT findings suggestive of pancolitis with concerns for infectious etiology versus inflammatory process with the patient having both positive stool occult blood and leuko ferritin with the patient showing good response to fluids and antibiotics. 2. Moderate dehydration, improving with IV fluids. 3. Electrolyte imbalance with a hypokalemia secondary to #1 requiring ongoing replacement. 4. Leukocytosis with bandemia secondary to #1 with concerns for bacterial etiology with cultures pending. 5. Acute urinary tract infection with cultures pending. PLAN: Will continue with current treatment plan with azithromycin and Rocephin. He has been advanced to a regular diet and apparently has been tolerating it well. He as not had any nausea but he has had several bouts of diarrhea stools, but not as many as he had yesterday. He seems to be more hydrated. I will saline lock him. Anticipate discharging tomorrow morning with continued outpatient treatment. He will certainly need workup with GI at some point. Unfortunately he is without any insurance at this point, so he will need to be referred over to [facility] to Dr. Patel at least for followup. Until discharge will continue to monitor and treat appropriately. #[id number]./ [facility]
[2017-11-22] MEDS ORDERED: SODIUM CHLORIDE 0.9% (FLUSH) 10 ML SYG IV SCH (21:00)
[2017-11-23] MEDS ORDERED: SODIUM CHL 0.9% 50ML MIN-BAG+ 50 ML IVPB ONE (03:06)
[2017-11-23] MEDS ORDERED: cefTRIAXone SODIUM 1 GM VIAL ONE (03:06)
[2017-11-23 04:24] VITALS: O2SAT 98
[2017-11-23 11:22] VITALS: BP 130/81; TEMP 98.6
--- NOTE | 2017-11-23 14:00 | DS ---
SUPERVISING PHYSICIAN: Wilfrid Hannon MD ADMISSION DIAGNOSES: 1. Acute abdominal pain secondary to pancolitis. 2. Moderate dehydration spondylolisthesis to #1. . 3. Electrolyte imbalance secondary to #1.. 4. Leukocytosis secondary to #1 . 5. Acute urinary tract infection. DISCHARGE DIAGNOSES: 1. Acute abdominal pain secondary to pancolitis. 2. Moderate dehydration spondylolisthesis to #1. . 3. Electrolyte imbalance secondary to #1.. 4. Leukocytosis secondary to #1 . 5. Acute urinary tract infection. HOSPITAL COURSE: This is a 22 year-old male patient who came to the Emergency Room with a 24-hour history of nausea, vomiting, diarrhea as well as abdominal cramping. He noted that he had thrown up about 10 times and had 10 bowel movements. For these reasons, he came to the Emergency Room. He was noted to have a leukocytosis of 20,000 with 7% bands. Chemistries showed a lot potassium as well. His urinalysis was consistent with a mild urinary tract infection as well. CT scan of the abdomen and pelvis was suggestive of pancolitis. For these reasons, he was admitted o the medical/surgical floor. Over the last couple of days the patient has received antibiotics as well as IV fluids. His clinical picture as well as laboratory results have improved. As stated before, his initial white count was 20.2, however, date of discharge today showed a white count of 9.5. There is no left shift. Additionally, his chemistry initially showed a hypokalemia and this resolved as well. Stool studies are still pending at this time. The patient has tolerated a diet without any difficulties. He has not had anymore nausea or vomiting and diarrhea has resolved as well. The patient will be discharged today on Cipro p.o. I have asked him to followup with [facility] in the next 7 days. #[id number] [facility]
== END 2017-11-23 11:10 | disposition home or self-care (01) | DRG 386 ==
LOC: ER 19:06 → MS 20:46 → OBSVTOIN 20:46
PROVIDERS: ADMIT Nurse Practitioner Family; ATTEND Nurse Practitioner
DX: K51.00 Ulcerative (chronic) pancolitis without complications (principal); N39.0 Urinary tract infection, site not specified; E86.0 Dehydration; E87.6 Hypokalemia

== ENCOUNTER 2018-04-01 06:14 | Emergency (ER) | payer SELFPAY ==
[2018-04-01 06:32] VITALS: BP 115/94; TEMP 103.9; O2SAT 97
--- NOTE | 2018-04-01 06:35 | ED.PDOC ---
History of Present Illness - General Source: patient Exam Limitations: no limitations - History of Present Illness Initial Comments: Urban Huang 22 y/o male stated that he had dry cough ,nasal congestion ,fever the last 2 days no ill contact,no chronic medical problems.No flu immunization. Timing/Duration: constant, other - 48 hours Severity: moderate Improving Factors: nothing Worsening Factors: nothing Associated Symptoms: fever/chills <Cj Richey R - Last Filed: 04/01/18 06:33> <William Avalos L - Last Filed: 04/01/18 07:45> - General Chief Complaint: General Stated Complaint: cough, cold chills, fever Time Seen by Provider: 04/01/18 06:24 - History of Present Illness Allergies/Adverse Reactions: Allergies NO KNOWN ALLERGY Allergy (Verified 04/01/18 06:31) Home Medications: Ambulatory Orders Ciprofloxacin [Cipro] 500 mg PO BID 7 Days #14 tab 11/23/17 Oseltamivir Capsule [Tamiflu] 75 mg PO BID 5 Days #10 capsule 04/01/18 Review of Systems - Review of Systems Constitutional: States: see HPI, fever EENTM: States: see HPI, nose congestion Respiratory: States: see HPI, cough Cardiology: States: no symptoms reported Gastrointestinal/Abdominal: States: no symptoms reported Genitourinary: States: no symptoms reported All other Systems: Reviewed and Negative, No Change from Baseline <Cj Richey R - Last Filed: 04/01/18 06:33> Past Medical History (General) - Patient Medical History Hx Seizures: No Hx Stroke: No Hx Dementia: No Hx Asthma: No Hx of COPD: No Hx Cardiac Disorders: No Hx Congestive Heart Failure: No Hx Pacemaker: No Hx Hypertension: No Hx Thyroid Disease: No Hx Diabetes: No Hx Gastroesophageal Reflux: No Hx Renal Disease: No Hx Cancer: No Hx of HIV: No Hx Hepatitis C: No Hx MRSA: No Surgical History: no surgical history - Vaccination History Hx Tetanus, Diphtheria Vaccination: No Hx Influenza Vaccination: No Hx Pneumococcal Vaccination: No - Social History Hx Tobacco Use: No Hx Chewing Tobacco Use: No Hx Alcohol Use: Yes - social Hx Substance Use: No Hx Substance Use Treatment: No Hx Depression: Yes Hx Physical Abuse: No Hx Emotional Abuse: No Hx Suspected Abuse: No - Female History Patient : No <Cj Richey R - Last Filed: 04/01/18 06:33> Family Medical History - Family History Mother Family History: Unknown Living Status: <Cj Richey R - Last Filed: 04/01/18 06:33> Physical Exam - Physical Exam General Appearance: Agitated, Comfortable, No apparent distress Eye Exam: bilateral normal Ears, Nose, Throat: hearing grossly normal, normal ENT inspection, normal pharynx Neck: supple, normal inspection Respiratory: chest non-tender, lungs clear, normal breath sounds, no respiratory distress Cardiovascular/Chest: normal peripheral pulses, regular rate, rhythm, no murmur Peripheral Pulses: radial,right: 2+, radial,left: 2+ Gastrointestinal/Abdominal: non tender, soft, no organomegaly Back Exam: normal inspection, no CVA tenderness, no vertebral tenderness Extremity: no pedal edema, no calf tenderness Neurologic: alert, oriented x 3 Skin Exam: normal color, warm/dry <Cj Richey R - Last Filed: 04/01/18 06:33> Progress - Progress Progress: 04/01/18 07:41 the patient is a 22-year-old male presenting to the emergency room secondary to influenza A. He does have a mild laryngitis associated with it and is accordingly receiving 1 dose of oral prednisone. He is being started on the Tamiflu with the first dose being given here. He will be written for a prescription to get filled and take for the treatment course of 5 days. Needs to keep himself well hydrated. Additionally I would recommend that he take 600 mg of Motrin every 8 hours for the next 2 days with food to help reduce fever and body aches. Initially he appears to have had a mild negative reaction to some cough syrup causing a little bit of mild confusion. He should avoid cough syrup in the future. He should follow-up with his primary care doctor early next week. ER warnings were given for any significant worsening. He is alert and oriented 4. no clinical evidence of significant encephalitis or meningitis at this time. No evidence of pneumonia. - Results/Orders Results/Orders: Laboratory Results - last 24 hr 04/01/18 04/01/18 04/01/18 06:49 06:49 06:49 WBC 9.9 RBC 4.91 Hgb 14.9 Hct 43.4 MCV 88.5 MCH 30.4 MCHC 34.3 RDW 13.6 Plt Count 262 MPV 8.0 Absolute Neuts (auto) 7.20 H Absolute Lymphs (auto) 1.00 Absolute Monos (auto) 1.50 H Absolute Eos (auto) 0.10 Absolute Basos (auto) 0.10 Neutrophils % 73.2 Lymphocytes % 10.0 L Monocytes % 15.0 H Eosinophils % 1.2 Basophils % 0.6 Sodium 132 L Potassium 3.4 L Chloride 101 Carbon Dioxide 22 Anion Gap 12.4 BUN 14 Creatinine 0.77 BUN/Creatinine Ratio 18.2 Random Glucose 96 Serum Osmolality 264.9 L Lactic Acid 1.3 Calcium 8.6 flu is positive for flu a. <William Avalos L - Last Filed: 04/01/18 07:45> Departure <Cj Richey R - Last Filed: 04/01/18 06:33> - Departure Diet: regular diet Activity: increase activity as tolerated <William Avalos L - Last Filed: 04/01/18 07:45> - Departure Clinical Impression: Influenza A Adverse reaction to cough suppressant Qualifiers: Encounter type: initial encounter Qualified Code(s): T48.3X5A - Adverse effect of antitussives, initial encounter Disposition: Discharge to Home or Self Care Condition: Fair Departure Forms: ED Discharge - Pt. Copy, Patient Portal Self Enrollment Instructions: Flu, Adult (DC) Prescriptions: Oseltamivir Capsule [Tamiflu] 75 mg PO BID 5 Days #10 capsule Home Medications: Ambulatory Orders Ciprofloxacin [Cipro] 500 mg PO BID 7 Days #14 tab 11/23/17 Oseltamivir Capsule [Tamiflu] 75 mg PO BID 5 Days #10 capsule 04/01/18 Additional Instructions: the patient is a 22-year-old male presenting to the emergency room secondary to influenza A. He does have a mild laryngitis associated with it and is accordingly receiving 1 dose of oral prednisone. He is being started on the Tamiflu with the first dose being given here. He will be written for a prescription to get filled and take for the treatment course of 5 days. Needs to keep himself well hydrated. Additionally I would recommend that he take 600 mg of Motrin every 8 hours for the next 2 days with food to help reduce fever and body aches. Initially he appears to have had a mild negative reaction to some cough syrup causing a little bit of mild confusion. He should avoid cough syrup in the future. He should follow-up with his primary care doctor early next week. ER warnings were given for any significant worsening. He is alert and oriented 4. no clinical evidence of significant encephalitis or meningitis at this time. No evidence of pneumonia. Addendum entered and electronically signed by William Avalos MD 04/01/18 07:54: Departure - Departure Clinical Impression: Influenza A Adverse reaction to cough suppressant Qualifiers: Encounter type: initial encounter Qualified Code(s): T48.3X5A - Adverse effect of antitussives, initial encounter Disposition: Discharge to Home or Self Care Condition: Fair Departure Forms: ED Discharge - Pt. Copy, Patient Portal Self Enrollment Instructions: Flu, Adult (DC) Prescriptions: Oseltamivir Capsule [Tamiflu] 75 mg PO BID 5 Days #10 capsule Home Medications: Ambulatory Orders Ciprofloxacin [Cipro] 500 mg PO BID 7 Days #14 tab 11/23/17 Oseltamivir Capsule [Tamiflu] 75 mg PO BID 5 Days #10 capsule 04/01/18 Additional Instructions: the patient is a 22-year-old male presenting to the emergency room secondary to influenza A. He does have a mild laryngitis associated with it and is accordingly receiving 1 dose of oral prednisone. He is being started on the Tamiflu with the first dose being given here. He will be written for a prescription to get filled and take for the treatment course of 5 days. Needs to keep himself well hydrated. Additionally I would recommend that he take 600 mg of Motrin every 8 hours for the next 2 days with food to help reduce fever and body aches. Initially he appears to have had a mild negative reaction to some cough syrup causing a little bit of mild confusion. He should avoid cough syrup in the future. He should follow-up with his primary care doctor early next week. ER warnings were given for any significant worsening. He is alert and oriented 4. no clinical evidence of significant encephalitis or meningitis at this time. No evidence of pneumonia.
[2018-04-01] MEDS ORDERED: IBUPROFEN 200 MG TAB ONE (07:04)
[2018-04-01] MEDS: IBUPROFEN 200 MG TAB PO ONE (07:10)
--- NOTE | 2018-04-01 07:33 | RAD ---
CHEST 03/01/2018 CLINICAL HISTORY: Cough and fever COMPARISON: 10/27/2014 TECHNIQUE: AP Chest. FINDINGS: Heart is normal in size. Normal cardiomediastinal contours. Normal pulmonary vascularity. Lungs and pleural spaces are clear. Unremarkable soft tissues and bones. IMPRESSION: 1. Negative chest exam. Electronically signed by: Alaina Sanchez DO 04/01/2018 7:31 AM [employer]
[2018-04-01] MEDS: OSELTAMIVIR 75 MG CAP PO ONE (07:45)
[2018-04-01] MEDS: predniSONE 20 MG TAB PO ONE (07:45)
== END 2018-04-01 08:20 | disposition home or self-care (01) ==
LOC: ER 06:14
DX: J10.1 Influenza due to other identified influenza virus with other respiratory manifestations (principal); T48.3X5A Adverse effect of antitussives, initial encounter; F32.9 Major depressive disorder, single episode, unspecified
CPT/HCPCS: 36415; 71045; 80048; 83605; 85025; 87502; J7512

== ENCOUNTER 2018-04-06 23:20 | Emergency (ER) | payer SELFPAY ==
--- NOTE | 2018-04-06 23:51 | RAD ---
EXAM DESCRIPTION: Chest,1 View CLINICAL HISTORY: 22 years Male, cough COMPARISON: Chest x-ray April 01, 2018 FINDINGS: No consolidation. No pneumothorax. No significant pleural effusion. Cardiomediastinal silhouette is unremarkable. Osseous structures are unremarkable. IMPRESSION: No acute findings. Electronically signed by: Cheo Doherty MD 04/06/2018 11:49 PM [employer]
--- NOTE | 2018-04-06 23:55 | ED.PDOC ---
History of Present Illness - General Chief Complaint: ENT Problem Stated Complaint: sore throat Time Seen by Provider: 04/06/18 23:40 Source: patient Exam Limitations: no limitations - History of Present Illness Initial Comments: Kelly Huang 22 y/o male diagnosed with Flu A one week ago and was prescribed Tamiflu but did not buy medicine since could not afford it state just took Tylenol and drank extra fluids.Had dry cough since he was diagnosed w/flu and achy throat and still with fever. Timing/Duration: last week Severity: moderate EENT Location: throat Prearrival Treatment: no prearrival treatment, over the counter meds Presenting Symptoms: sore throat /fever Improving Factors: nothing Worsening Factors: nothing Associated Symptoms: cough, fever Allergies/Adverse Reactions: Allergies NO KNOWN ALLERGY Allergy (Verified 04/01/18 06:31) Home Medications: Ambulatory Orders Ciprofloxacin [Cipro] 500 mg PO BID 7 Days #14 tab 11/23/17 Oseltamivir Capsule [Tamiflu] 75 mg PO BID 5 Days #10 capsule 04/01/18 Azithromycin [Zithromax Z-Juan Jose] 500 mg PO DAILY 3 Days #6 tab 04/07/18 Review of Systems - Review of Systems Constitutional: States: see HPI, fever EENTM: States: see HPI, nose congestion Respiratory: States: see HPI, cough Gastrointestinal/Abdominal: States: no symptoms reported Genitourinary: States: no symptoms reported All other Systems: Reviewed and Negative, No Change from Baseline Past Medical History (General) - Patient Medical History Hx Seizures: No Hx Stroke: No Hx Dementia: No Hx Asthma: No Hx of COPD: No Hx Cardiac Disorders: No Hx Congestive Heart Failure: No Hx Pacemaker: No Hx Hypertension: No Hx Thyroid Disease: Yes Hx Diabetes: Yes Hx Gastroesophageal Reflux: Yes Hx Renal Disease: No Hx Cancer: No Hx of HIV: No Hx Hepatitis C: No Hx MRSA: No Surgical History: no surgical history - Vaccination History Hx Tetanus, Diphtheria Vaccination: No Hx Influenza Vaccination: No Hx Pneumococcal Vaccination: No - Social History Hx Tobacco Use: No Hx Chewing Tobacco Use: No Hx Alcohol Use: Yes - social Hx Substance Use: No Hx Substance Use Treatment: No Hx Depression: Yes Hx Physical Abuse: No Hx Emotional Abuse: No Hx Suspected Abuse: No - Activities of Daily Living Patient Lives Alone: No - Female History Patient : No Family Medical History - Family History Mother Family History: Unknown Living Status: Physical Exam - Physical Exam General Appearance: Alert, Comfortable, No apparent distress Eye Exam: bilateral normal Ear Exam: bilateral ear: auricle normal, canal normal, TM normal Nasal Exam: normal inspection Throat Exam: normal mouth inspection, other - pharyngeal erythema Neck: non-tender, supple, normal inspection, trachea midline Cardiovascular/Respiratory: regular rate, rhythm, no M/R/G, normal peripheral pulses, no JVD, normal breath sounds, no respiratory distress Abdominal Exam: non-tender Neurologic: alert, oriented x 3 Skin Exam: normal color, warm/dry Progress - Progress Progress: 04/06/18 23:58 Vital Signs - 8 hr 04/06/18 04/06/18 23:37 23:43 Temperature 101.3 F H Pulse Rate [ 132 H left] Respiratory 18 20 Rate Blood Pressure 117/88 [left] O2 Sat by Pulse 98 Oximetry - Results/Orders Results/Orders: RAPID STREP TEST-NEGATIVE;Discuss test results with patient - EKG/XRAY/CT XRAY: chest - no acute findings Departure - Departure Clinical Impression: Influenza with upper respiratory symptoms Time of Disposition: 00:15 Disposition: Discharge to Home or Self Care Condition: Fair Departure Forms: ED Discharge - Pt. Copy, Patient Portal Self Enrollment Prescriptions: Azithromycin [Zithromax Z-Juan Jose] 500 mg PO DAILY 3 Days #6 tab Home Medications: Ambulatory Orders Ciprofloxacin [Cipro] 500 mg PO BID 7 Days #14 tab 11/23/17 Oseltamivir Capsule [Tamiflu] 75 mg PO BID 5 Days #10 capsule 04/01/18 Azithromycin [Zithromax Z-Jua Njose] 500 mg PO DAILY 3 Days #6 tab 04/07/18 Additional Instructions: Use nasal saline rinse 3 x a day both nostrils for nasal congestion as needed until better;For cough(over the counter)cough /cold medications nighttime and daytime relief medications preferably liquid;Tylenol 500 mg every 6 hours for fever;continue to drink extra fluids ;May also take over the counter Benadryl Capsule one 3 x a day until better
[2018-04-06] MEDS ORDERED: cefTRIAXone SODIUM 1 GM VIAL IM ONE (23:57)
[2018-04-06] MEDS ORDERED: AZITHROMYCIN 250 MG TAB PO ONE (23:57)
[2018-04-06] MEDS ORDERED: BENZONATATE PERLES 100 MG CAP PO ONE (23:57)
[2018-04-07] MEDS ORDERED: LIDOCAINE 1% 2 ML VIAL INJ ONE
[2018-04-07] MEDS ORDERED: IBUPROFEN 200 MG TAB PO ONE (00:21)
[2018-04-07 00:35] VITALS: BP 116/89; TEMP 100.8; O2SAT 97
== END 2018-04-07 00:34 | disposition home or self-care (01) ==
LOC: ER 23:20
DX: J11.1 Influenza due to unidentified influenza virus with other respiratory manifestations (principal); F32.9 Major depressive disorder, single episode, unspecified; E07.9 Disorder of thyroid, unspecified; E11.9 Type 2 diabetes mellitus without complications; K21.9 Gastro-esophageal reflux disease without esophagitis
CPT/HCPCS: 71045; 87070; 87880; J0696; Q0144

== ENCOUNTER 2019-03-12 07:36 | Emergency (ER) | payer SELFPAY ==
--- NOTE | 2019-03-12 07:42 | ED.PDOC ---
History of Present Illness - General Time Seen by Provider: 03/12/19 07:39 Source: patient - History of Present Illness Initial Comments: 23 yo male bib mother for cc of flu-like illness. Onset 3-4 days ago. Reports primary sx's of congestion, intermittent cough productive mostly for clear mucous, body aches, sore throat, headache, intermittent upper abdominal pains which radiate around right side to the back, nausea with a few episodes of NBNB emesis, malaise, fatigue, and fevers with Tmax 102 F yesterday at home. Reports 4/10 pain (aching to body) currently. Denies any nausea currently. Taking fluids well and able to eat some noodle soup last night. Taking OTC cough/cold medicine with moderate relief. Mother was ill last month but no other known recent sick contacts. Allergies/Adverse Reactions: Allergies NO KNOWN ALLERGY Allergy (Verified 03/12/19 07:53) Home Medications: Ambulatory Orders NK 03/12/19 Review of Systems - Review of Systems Review of Systems: 03/12/19 07:52 as per HPI All other Systems: Reviewed and Negative Past Medical History (General) - Patient Medical History Hx Seizures: No Hx Stroke: No Hx Dementia: No Hx Asthma: No Hx of COPD: No Hx Cardiac Disorders: No Hx Congestive Heart Failure: No Hx Pacemaker: No Hx Hypertension: No Hx Thyroid Disease: Yes Hx Diabetes: Yes Hx Gastroesophageal Reflux: Yes Hx Renal Disease: No Hx Cancer: No Hx of HIV: No Hx Hepatitis C: No Hx MRSA: No - Vaccination History Hx Tetanus, Diphtheria Vaccination: No Hx Influenza Vaccination: No Hx Pneumococcal Vaccination: No - Social History Hx Tobacco Use: No Hx Chewing Tobacco Use: No Hx Alcohol Use: Yes - social Hx Substance Use: No Hx Substance Use Treatment: No Hx Depression: Yes Hx Physical Abuse: No Hx Emotional Abuse: No Hx Suspected Abuse: No - Female History Patient : No Family Medical History - Family History Mother Family History: Unknown Living Status: Physical Exam - Physical Exam General Appearance: Alert, No apparent distress Eye Exam: bilateral normal Ears, Nose, Throat: hearing grossly normal, nasal congestion, pharyngeal erythema, other - normal TM's BL, erythema to posterior OP without exudate or swelling Neck: non-tender, full range of motion, supple, normal inspection Respiratory: chest non-tender, lungs clear, normal breath sounds, no respiratory distress, no accessory muscle use Cardiovascular/Chest: normal peripheral pulses, regular rate, rhythm, no edema, no JVD, no murmur Peripheral Pulses: radial,right: 2+, radial,left: 2+ Gastrointestinal/Abdominal: non tender, soft, no organomegaly Back Exam: normal inspection, no CVA tenderness, no vertebral tenderness Extremity: normal range of motion, non-tender, normal inspection, no pedal edema, no calf tenderness, normal capillary refill 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, no motor/sensory deficits, alert, normal mood/affect, oriented x 3 Skin Exam: normal color, warm/dry Progress - Progress Progress: 03/12/19 07:53 Flu-like illness -flu vs strep vs URI vs gastroenteritis vs other viral etiology -vitals stable, afebrile, NAD -check flu & strep tests -Tylenol 650 mg PO for low-grade fever (99.1 F) 03/12/19 08:37 -Flu & strep testing negative -discussed dx of viral URI, expected course, and home treatment -dc home in good condition, return warnings discussed Tha Guerrero MD Billing #[id number] Departure - Departure Clinical Impression: URI, acute Time of Disposition: 08:36 Disposition: Discharge to Home or Self Care Condition: Fair Instructions: Viral Upper Respiratory Infection, Adult (DC) Diet: resume usual diet Home Medications: Ambulatory Orders NK 03/12/19 Additional Instructions: Remain well-hydrated and advance diet as tolerated. Continue taking OTC medications such as ibuprofen and Tylenol for fevers/aches/pain. You may take other OTC cough and cold medicines as needed as well. Return if worsening or other concerning symptoms such as shortness of breath, intractable nausea & vomiting, frequent or large volume vomiting and/or diarrhea, blood in the stool, etc... Follow up with your primary care doctor in 5-7 days is recommended for r epeat evaluation or sooner as needed.
[2019-03-12] MEDS ORDERED: ACETAMINOPHEN 325 MG TAB PO ONE (07:48)
[2019-03-12 07:49] VITALS: TEMP 99.1
[2019-03-12 08:06] VITALS: O2SAT 98
[2019-03-12 08:45] VITALS: BP 119/62
== END 2019-03-12 08:44 | disposition home or self-care (01) ==
LOC: ER 07:36
DX: J06.9 Acute upper respiratory infection, unspecified (principal); F32.9 Major depressive disorder, single episode, unspecified; E07.9 Disorder of thyroid, unspecified; E11.9 Type 2 diabetes mellitus without complications; K21.9 Gastro-esophageal reflux disease without esophagitis